=== PATIENT | female | born 1940 | race Caucasian/White ===

== ENCOUNTER 2017-12-20 15:30 | Emergency (ER) | payer MEDICARE ==
[~2017-12-20] VITALS: Ht 157.5 cm; Wt 103.9 kg
[2017-12-20] MEDS ORDERED: POTASSIUM CITRATE 10 MEQ TAB PO ONE (17:15)
[2017-12-20 17:24] VITALS: BP 126/78
== END 2017-12-20 17:20 | disposition home or self-care (01) ==
LOC: FSED 15:30
DX: G47.00 Insomnia, unspecified (principal); R31.9 Hematuria, unspecified; R53.1 Weakness; E87.6 Hypokalemia; R41.3 Other amnesia
CPT/HCPCS: 99283

== ENCOUNTER 2022-04-26 15:19 | Emergency (ER) | payer MEDICARE, OTHER ==
[~2022-04-26] VITALS: Ht 157.5 cm; Wt 103.9 kg
[2022-04-26 15:46] LABS: BASOPHILS % 0.4 % (0.0-1.0); EOSINOPHILS # (AUTO) 0.2 (0.0-0.4); EOSINOPHILS % 2.7 % (0.0-6.0); HEMATOCRIT 46.4 % (34.2-44.1); HEMOGLOBIN 15.1 g/dL (12.0-16.0); LYMPHOCYTES # (AUTO) 2.1 (1.0-3.2); LYMPHOCYTES % 28.4 % (18.0-39.1); MEAN CORPUSCULAR HEMOGLOBIN 31.9 pg (28-32); MEAN CORPUSCULAR HGB CONC 32.5 g/dL (31-35); MEAN CORPUSCULAR VOLUME 97.9 fL (81-99); MONOCYTES # (AUTO) 0.7 (0.2-0.8); MONOCYTES % 8.8 % (4.4-11.3); NEUTROPHILS # (AUTO) 4.5 (2.1-6.9); NEUTROPHILS % 59.6 % (38.7-80.0); PLATELET COUNT 251 x10e3/uL (140-360); RED BLOOD COUNT 4.74 x10e6/uL (3.6-5.1); RED CELL DISTRIBUTION WIDTH 13.8 % (11.7-14.4)
[2022-04-26 15:53] LABS: INR 0.89; PROTHROMBIN TIME 12.9 seconds (11.9-14.5)
[2022-04-26 15:54] LABS: PARTIAL THROMBOPLASTIN TIME 25.6 seconds (23.8-35.5)
[2022-04-26 16:01] LABS: ALANINE AMINOTRANSFERASE 10 IU/L (0-55); ALBUMIN 3.3 g/dL (3.5-5.0); ALBUMIN/GLOBULIN RATIO 0.8 (0.8-2.0); ALKALINE PHOSPHATASE 76 IU/L (40-150); ANION GAP 12.6 mmol/L (8-16); BLOOD UREA NITROGEN 18 mg/dL (7-26); BUN/CREATININE RATIO 18 (6-25); CALCIUM 9.8 mg/dL (8.4-10.2); CARBON DIOXIDE 27 mmol/L (22-29); CHLORIDE 108 mmol/L (98-107); CREATINE KINASE 27 IU/L (29-168); GLUCOSE 115 mg/dL (74-118); POTASSIUM 3.6 mmol/L (3.5-5.1); SODIUM 144 mmol/L (136-145)
[2022-04-26 16:10] LABS: CLARITY,URINE SL CLOUDY (CLEAR); COLOR,URINE AMBER (YELLOW); KETONES,URINE TRACE (NEGATIVE); LEUKOCYTE ESTERASE ,URINE NEGATIVE (NEGATIVE); NITRITE,URINE NEGATIVE (NEGATIVE); PROTEIN,URINE DIPSTICK TRACE (NEGATIVE); URINE UROBILINOGEN 0.2 mg/dL (0.2 - 1)
[2022-04-26 16:19] LABS: BACTERIA,URINE FEW /HPF
[2022-04-26 16:20] LABS: AMORPHOUS SEDIMENT,URINE MODERATE (FEW); EPITHELIAL CELLS,URINE MANY /LPF; MUCUS,URINE MODERATE (RARE)
[2022-04-27 04:39] VITALS: BP 147/80
== END 2022-04-26 23:59 | disposition other institution (70) ==
LOC: ER 15:25
DX: R41.82 Altered mental status, unspecified (principal); R94.31 Abnormal electrocardiogram [ECG] [EKG]; Z20.822 Contact with and (suspected) exposure to COVID-19
CPT/HCPCS: 36415; 70450; 71045; 80053; 81001; 82550; 82553; 83880; 84484; 85025; 85610; 85730; 93005; 99285; U0002

== ENCOUNTER 2023-09-14 14:24 | Inpatient (IN) | payer MEDICARE, OTHER ==
[~2023-09-14] VITALS: Ht 157.5 cm; Wt 103.9 kg
[2023-09-14] MEDS ORDERED: LACTATED RINGER'S 1,000 ML INJ ONE (15:45)
[2023-09-14] MEDS ORDERED: LEVOFLOXACIN 500MG/D5W 100ML 100 ML IV ONE (16:00)
[2023-09-14 16:17] LABS: BASOPHILS % 0.4 % (0.0-1.0); EOSINOPHILS # (AUTO) 0.2 (0.0-0.4); EOSINOPHILS % 2.6 % (0.0-6.0); HEMATOCRIT 46.6 % (34.2-44.1); HEMOGLOBIN 15.8 g/dL (12.0-16.0); LYMPHOCYTES % 27.9 % (18.0-39.1); MEAN CORPUSCULAR HEMOGLOBIN 32.1 pg (28-32); MEAN CORPUSCULAR HGB CONC 33.9 g/dL (31-35); MEAN CORPUSCULAR VOLUME 94.7 fL (81-99); MONOCYTES # (AUTO) 0.7 (0.2-0.8); MONOCYTES % 9.4 % (4.4-11.3); NEUTROPHILS # (AUTO) 4.3 (2.1-6.9); NEUTROPHILS % 59.4 % (38.7-80.0); PLATELET COUNT 229 x10e3/uL (140-360); RED BLOOD COUNT 4.92 x10e6/uL (3.6-5.1); RED CELL DISTRIBUTION WIDTH 13.8 % (11.7-14.4)
[2023-09-14 16:31] LABS: ALANINE AMINOTRANSFERASE 12 IU/L (0-55); ALBUMIN 3.7 g/dL (3.5-5.0); ALBUMIN/GLOBULIN RATIO 1.2 (0.8-2.0); ALKALINE PHOSPHATASE 70 IU/L (40-150); ANION GAP 14.6 mmol/L (8-16); BLOOD UREA NITROGEN 26 mg/dL (7-26); BUN/CREATININE RATIO 28 (6-25); CALCIUM 10.2 mg/dL (8.4-10.2); CARBON DIOXIDE 27 mmol/L (22-29); CHLORIDE 106 mmol/L (98-107); CREATINE KINASE 30 IU/L (29-168); CREATININE, SERUM 0.94 mg/dL (0.57-1.11); GLUCOSE 96 mg/dL (74-118); POTASSIUM 4.6 mmol/L (3.5-5.1); SODIUM 143 mmol/L (136-145)
[2023-09-14] MEDS ORDERED: SODIUM CHLORIDE FLUSH 10 ML SYR INJ PRN (17:30)
[2023-09-14 18:00] LABS: CLARITY,URINE TURBID (CLEAR); COLOR,URINE YELLOW (YELLOW); KETONES,URINE NEGATIVE (NEGATIVE); LEUKOCYTE ESTERASE ,URINE LARGE (NEGATIVE); NITRITE,URINE POSITIVE (NEGATIVE); PROTEIN,URINE DIPSTICK NEGATIVE (NEGATIVE); URINE UROBILINOGEN 0.2 mg/dL (0.2 - 1)
[2023-09-14 18:01] LABS: BACTERIA,URINE MODERATE /HPF; EPITHELIAL CELLS,URINE FEW /LPF; WBC,URINE (MAN) 21-50 /HPF (0-5)
[2023-09-14 20:20] VITALS: PULSE 74; RESP 20; O2SAT 99
[2023-09-14 21:00] VITALS: BP 149/70; PULSE 65; RESP 21; TEMP 98.1; O2SAT 100
[2023-09-14] MEDS ORDERED: LEVOFLOXACIN 250 MG TAB PO ONE (21:30)
[2023-09-14 22:21] VITALS: BP 149/70; PULSE 65; RESP 21; TEMP 98.1; O2SAT 100
[2023-09-15] VITALS (10 sets, daily range): BP systolic 134–152; BP diastolic 79–94; PULSE 68–99; RESP 18–20; TEMP 97.4–98.5; O2SAT 94–99
[2023-09-15] MEDS: FUROSEMIDE INJ 10 MG/ML 2 ML VIAL IV SCH ×3 (02:11→17:29)
[2023-09-15] MEDS ORDERED: ONDANSETRON HCL INJ 2MG/ML 2ML 2 MG/ML VIAL IV PRN (10:45)
[2023-09-15] MEDS ORDERED: ACETAMINOPHEN 325 MG TAB PO PRN (10:45)
[2023-09-15] MEDS ORDERED: HYDRALAZINE HCL 20 MG/ML VIAL IV PRN (10:45)
[2023-09-16] VITALS (7 sets, daily range): BP systolic 121–160; BP diastolic 71–85; PULSE 75–82; RESP 16–21; TEMP 97.4–98.5; O2SAT 96–99
[2023-09-16 06:09] LABS: BASOPHILS % 0.3 % (0.0-1.0); EOSINOPHILS # (AUTO) 0.2 (0.0-0.4); HEMATOCRIT 43.1 % (34.2-44.1); HEMOGLOBIN 15.4 g/dL (12.0-16.0); LYMPHOCYTES # (AUTO) 2.4 (1.0-3.2); LYMPHOCYTES % 25.3 % (18.0-39.1); MEAN CORPUSCULAR HEMOGLOBIN 33.3 pg (28-32); MEAN CORPUSCULAR HGB CONC 35.7 g/dL (31-35); MEAN CORPUSCULAR VOLUME 93.3 fL (81-99); MONOCYTES # (AUTO) 0.9 (0.2-0.8); MONOCYTES % 9.1 % (4.4-11.3); NEUTROPHILS % 62.8 % (38.7-80.0); PLATELET COUNT 201 x10e3/uL (140-360); RED BLOOD COUNT 4.62 x10e6/uL (3.6-5.1); RED CELL DISTRIBUTION WIDTH 13.7 % (11.7-14.4); WHITE BLOOD COUNT 9.59 x10e3/uL (4.8-10.8)
[2023-09-16 06:22] LABS: ANION GAP 16.4 mmol/L (8-16); CALCIUM 9.4 mg/dL (8.4-10.2); CREATININE, SERUM 0.96 mg/dL (0.57-1.11); POTASSIUM 3.4 mmol/L (3.5-5.1)
[2023-09-16] MEDS: FUROSEMIDE INJ 10 MG/ML 2 ML VIAL IV SCH (08:37)
[2023-09-16] MEDS ORDERED: POTASSIUM CHLORIDE 10MEQ EA PO ONE (11:00)
[2023-09-16] MEDS: SOD CHL 0.45%/POT CHL 20MEQ 1,000 ML IV SCH (12:10)
[2023-09-17] VITALS: BP 131/66; PULSE 79; RESP 17; TEMP 98.6; O2SAT 96
[2023-09-17 01:06] VITALS: BP 150/73; PULSE 76; RESP 18; TEMP 98.5; O2SAT 97
[2023-09-17 04:00] VITALS: BP 142/71; PULSE 72; RESP 18; TEMP 98.2; O2SAT 96
[2023-09-17] MEDS: SOD CHL 0.45%/POT CHL 20MEQ 1,000 ML IV SCH ×2 (05:45→13:40)
[2023-09-17 06:26] LABS: ANION GAP 12.9 mmol/L (8-16); CALCIUM 9.1 mg/dL (8.4-10.2); CREATININE, SERUM 0.79 mg/dL (0.57-1.11); POTASSIUM 3.9 mmol/L (3.5-5.1)
[2023-09-17] MEDS ORDERED: ONDANSETRON HCL 4 MG ORAL DISINTEGRATING TAB PO PRN (08:30)
[2023-09-17 08:48] VITALS: BP 143/78; PULSE 79; RESP 19; TEMP 97.9; O2SAT 97
[2023-09-17 08:55] VITALS: BP 143/78; PULSE 79; RESP 19; TEMP 97.9; O2SAT 97
[2023-09-17] MEDS ORDERED: CIPROFLOXACIN 500 MG TAB PO SCH (10:00)
[2023-09-17] MEDS ORDERED: LIDOCAINE 4% PATCH TP SCH (10:00)
[2023-09-17 12:18] VITALS: BP 153/83; PULSE 89; RESP 19; TEMP 97.9; O2SAT 97
== END 2023-09-17 15:34 | disposition home or self-care (01) | DRG 689 ==
LOC: ER 14:34 → ERHOLD 17:21 → MED/SURG2 20:37
PROVIDERS: ADMIT Internal Medicine; ATTEND Internal Medicine
PROC: 3E03329 Introduction of Other Anti-infective into Peripheral Vein, Percutaneous Approach (ICD-10-PCS; principal; 2023-09-14)
PROC: 05H533Z Insertion of Infusion Device into Right Subclavian Vein, Percutaneous Approach (ICD-10-PCS; 2023-09-15)
PROC: B546ZZA Ultrasonography of Right Subclavian Vein, Guidance (ICD-10-PCS; 2023-09-15)
DX: N39.0 Urinary tract infection, site not specified (principal); G92.8 Other toxic encephalopathy; G93.41 Metabolic encephalopathy; Z68.41 Body mass index [BMI] 40.0-44.9, adult; B96.20 Unspecified Escherichia coli [E. coli] as the cause of diseases classified elsewhere; F03.90 Unspecified dementia, unspecified severity, without behavioral disturbance, psychotic disturbance, mood disturbance, and anxiety; M25.562 Pain in left knee; M25.561 Pain in right knee; F01.50 Vascular dementia, unspecified severity, without behavioral disturbance, psychotic disturbance, mood disturbance, and anxiety; G89.29 Other chronic pain; E66.01 Morbid (severe) obesity due to excess calories; M17.0 Bilateral primary osteoarthritis of knee; Z96.653 Presence of artificial knee joint, bilateral; Z88.1 Allergy status to other antibiotic agents; W06.XXXA Fall from bed, initial encounter; Y92.003 Bedroom of unspecified non-institutional (private) residence as the place of occurrence of the external cause; Z99.3 Dependence on wheelchair; Z74.01 Bed confinement status; Z86.73 Personal history of transient ischemic attack (TIA), and cerebral infarction without residual deficits; Z90.5 Acquired absence of kidney; Z88.0 Allergy status to penicillin; Z88.2 Allergy status to sulfonamides; Z20.822 Contact with and (suspected) exposure to COVID-19
CPT/HCPCS: 36415; 36568; 36569; 70450; 71045; 72125; 80048; 80053; 81001; 82550; 83880; 84484; 85025; 87086; 87186; 93005; 94799; 99284; J1940; J1956; U0002

== ENCOUNTER 2024-06-16 17:53 | Inpatient (IN) | payer MEDICARE, OTHER ==
[~2024-06-16] VITALS: Ht 157.5 cm; Wt 113.4 kg
[2024-06-16] MEDS: LACTATED RINGER'S 1,000 ML INJ STA (22:02)
[2024-06-16] MEDS ORDERED: IOPAMIDOL 370 MG/ML 100 ML INFUS..BTL INJ ONE (22:22)
[2024-06-16] MEDS ORDERED: SODIUM CHLORIDE 0.9% 100 ML ONE (22:22)
[2024-06-17] VITALS (16 sets, daily range): BP systolic 131–159; BP diastolic 45–87; PULSE 68–96; RESP 15–22; TEMP 97.5–99; O2SAT 89–99
[2024-06-17] MEDS ORDERED: ONDANSETRON HCL INJ 2MG/ML 2ML 2 MG/ML VIAL IV PRN ×2 (01:45→08:15)
[2024-06-17] MEDS: SODIUM CHLORIDE 0.9% 1000ML 1,000 ML IV SCH (01:45)
[2024-06-17] MEDS ORDERED: BENZONATATE 100 MG CAP PO PRN (08:15)
[2024-06-17] MEDS ORDERED: ACETAMINOPHEN 325 MG TAB PO PRN (08:15)
[2024-06-17] MEDS ORDERED: ALBUTEROL/IPRATROPIUM 3 ML NEB NEB PRN (08:15)
[2024-06-17] MEDS: GUAIFENESIN 600 MG TAB PO SCH (08:21)
[2024-06-17] MEDS: ALBUTEROL/IPRATROPIUM 3 ML NEB NEB SCH (10:13)
[2024-06-17] MEDS: ENOXAPARIN SOD INJ 40 MG/0.4 ML SYR SC SCH (17:19)
[2024-06-18] VITALS (12 sets, daily range): BP systolic 128–156; BP diastolic 61–101; PULSE 68–89; RESP 14–23; TEMP 97.3–98.7; O2SAT 94–100
[2024-06-18 08:00] LABS: ANION GAP 12.9 mmol/L (8-16); CALCIUM 8.7 mg/dL (8.4-10.2); CREATININE, SERUM 0.72 mg/dL (0.57-1.11); POTASSIUM 3.9 mmol/L (3.5-5.1)
[2024-06-18 08:26] LABS: BASOPHILS % 0.4 % (0.0-1.0); EOSINOPHILS # (AUTO) 0.3 (0.0-0.4); EOSINOPHILS % 3.1 % (0.0-6.0); HEMATOCRIT 43.2 % (34.2-44.1); HEMOGLOBIN 14.1 g/dL (12.0-16.0); LYMPHOCYTES # (AUTO) 2.8 (1.0-3.2); LYMPHOCYTES % 30.3 % (18.0-39.1); MEAN CORPUSCULAR HEMOGLOBIN 32.8 pg (28-32); MEAN CORPUSCULAR HGB CONC 32.6 g/dL (31-35); MEAN CORPUSCULAR VOLUME 100.5 fL (81-99); MONOCYTES # (AUTO) 0.9 (0.2-0.8); MONOCYTES % 9.9 % (4.4-11.3); NEUTROPHILS # (AUTO) 5.3 (2.1-6.9); PLATELET COUNT 181 x10e3/uL (140-360); RED CELL DISTRIBUTION WIDTH 13.2 % (11.7-14.4); WHITE BLOOD COUNT 9.38 x10e3/uL (4.8-10.8)
[2024-06-18] MEDS: BALSAM PERU/CASTOR OIL 60 GM OINT...G. TP SCH (09:42)
[2024-06-18 10:14] LABS: FOLATE 14.5 ng/mL (7.0-15.4)
[2024-06-18] MEDS: MUPIROCIN 2% OINT 22 GM TUBE TOP SCH (11:03)
[2024-06-18] MEDS: APIXABAN 5 MG TABLET PO SCH (11:03)
[2024-06-19] VITALS (21 sets, daily range): BP systolic 146–183; BP diastolic 53–140; PULSE 78–107; RESP 18–27; TEMP 97.6–98.6; O2SAT 96–100
[2024-06-19 04:31] LABS: CLARITY,URINE CLEAR (CLEAR); COLOR,URINE YELLOW (YELLOW); GLUCOSE, URINE NEGATIVE (NEGATIVE); LEUKOCYTE ESTERASE ,URINE SMALL (NEGATIVE); NITRITE,URINE NEGATIVE (NEGATIVE); PH,URINE 7 (5 - 7); PROTEIN,URINE DIPSTICK NEGATIVE (NEGATIVE)
[2024-06-19 04:32] LABS: BILIRUBIN,URINE NEGATIVE (NEGATIVE); KETONES,URINE NEGATIVE (NEGATIVE); URINE UROBILINOGEN 0.2 mg/dL (0.2 - 1)
[2024-06-19 05:03] LABS: BACTERIA,URINE MANY /HPF; EPITHELIAL CELLS,URINE FEW /LPF; RBC,URINE 0-5 /HPF (0-5); WBC,URINE (MAN) 0-5 /HPF (0-5)
[2024-06-19] MEDS: ZOLPIDEM TARTRATE 5 MG TAB PO PRN (20:51)
[2024-06-20] VITALS (21 sets, daily range): BP systolic 145–181; BP diastolic 72–111; PULSE 67–110; RESP 12–20; TEMP 97.9–98.2; O2SAT 94–100
[2024-06-20] MEDS: HALOPERIDOL LACTATE 5 MG/ML VIAL IM PRN (02:11)
[2024-06-20] MEDS: METOPROLOL TARTRATE 50 MG TAB PO SCH (09:26)
[2024-06-20] MEDS: LINEZOLID 600 MG TAB PO SCH (09:26)
== END 2024-06-20 17:50 | disposition hospice, home (50) | DRG 299 ==
LOC: FSED 17:59 → ERHOLD 06-17 01:48 → ICU 06-17 02:25
PROVIDERS: ADMIT Internal Medicine; ATTEND Internal Medicine
PROC: 02HV33Z Insertion of Infusion Device into Superior Vena Cava, Percutaneous Approach (ICD-10-PCS; principal; 2024-06-18)
DX: I82.411 Acute embolism and thrombosis of right femoral vein (principal); G92.8 Other toxic encephalopathy; F05 Delirium due to known physiological condition; N39.0 Urinary tract infection, site not specified; Z68.42 Body mass index [BMI] 45.0-49.9, adult; F02.811 Dementia in other diseases classified elsewhere, unspecified severity, with agitation; F02.82 Dementia in other diseases classified elsewhere, unspecified severity, with psychotic disturbance; G30.9 Alzheimer's disease, unspecified; I50.9 Heart failure, unspecified; E66.01 Morbid (severe) obesity due to excess calories; E86.0 Dehydration; B95.2 Enterococcus as the cause of diseases classified elsewhere; Z51.5 Encounter for palliative care; I25.10 Atherosclerotic heart disease of native coronary artery without angina pectoris; Z11.52 Encounter for screening for COVID-19; M19.90 Unspecified osteoarthritis, unspecified site; K21.9 Gastro-esophageal reflux disease without esophagitis; M54.9 Dorsalgia, unspecified; Z99.3 Dependence on wheelchair; Z90.710 Acquired absence of both cervix and uterus; Z86.711 Personal history of pulmonary embolism; Z87.440 Personal history of urinary (tract) infections; Z95.5 Presence of coronary angioplasty implant and graft; Z88.1 Allergy status to other antibiotic agents; Z88.2 Allergy status to sulfonamides; Z88.5 Allergy status to narcotic agent; Z88.8 Allergy status to other drugs, medicaments and biological substances
CPT/HCPCS: 0223U; 36415; 36569; 70450; 70551; 71045; 71250; 74176; 80048; 80076; 81001; 81003; 82553; 82607; 82746; 82948; 83880; 84443; 84484; 85025; 87086; 87186; 93005; 93970; 94640; 94799; 99252; 99284; J1630; J1650; J7030; J7050; Q9967

== ENCOUNTER 2025-05-17 14:55 | Observation (INO) | payer MEDICARE ==
[~2025-05-17] VITALS: Ht 157.5 cm; Wt 113.4 kg
[2025-05-17 15:07] VITALS: TEMP 98.9
[2025-05-17 16:00] VITALS: PULSE 86; RESP 18
[2025-05-17 16:22] LABS: BASOPHILS % 0.3 % (0.0-1.0); EOSINOPHILS # (AUTO) 0.1 (0.0-0.4); EOSINOPHILS % 0.4 % (0.0-6.0); HEMOGLOBIN 15.7 g/dL (12.0-16.0); MEAN CORPUSCULAR HEMOGLOBIN 33.1 pg (28-32); MEAN CORPUSCULAR HGB CONC 34.1 g/dL (31-35); MONOCYTES # (AUTO) 1.1 (0.2-0.8); MONOCYTES % 7.6 % (4.4-11.3); NEUTROPHILS # (AUTO) 10.9 (2.1-6.9); NEUTROPHILS % 77.3 % (38.7-80.0); PLATELET COUNT 214 x10e3/uL (140-360); RED BLOOD COUNT 4.74 x10e6/uL (3.6-5.1); RED CELL DISTRIBUTION WIDTH 12.8 % (11.7-14.4); WHITE BLOOD COUNT 14.05 x10e3/uL (4.8-10.8)
[2025-05-17 16:26] LABS: INR 0.95; PROTHROMBIN TIME 13.5 seconds (11.9-14.5)
[2025-05-17 16:27] LABS: PARTIAL THROMBOPLASTIN TIME 24.4 seconds (23.8-35.5)
[2025-05-17 16:34] LABS: ALBUMIN 3.5 g/dL (3.5-5.0); ALBUMIN/GLOBULIN RATIO 1.2 (0.8-2.0); CALCIUM 9.6 mg/dL (8.4-10.2); CREATININE, SERUM 0.78 mg/dL (0.57-1.11); TOTAL PROTEIN 6.4 g/dL (6.5-8.1)
[2025-05-17] MEDS: SODIUM CHLORIDE 0.9% 1000ML 1,000 ML IV STA (16:57)
[2025-05-17] MEDS ORDERED: ONDANSETRON HCL INJ 2MG/ML 2ML 2 MG/ML VIAL IV PRN (17:15)
[2025-05-17 21:30] VITALS: BP 126/97; PULSE 81; RESP 18; TEMP 98.4; O2SAT 98
[2025-05-17] MEDS ORDERED: ELIQUIS5 MG PO (22:56)
[2025-05-17] MEDS ORDERED: METHENAMINE HIPP1 GM PO (22:56)
[2025-05-17] MEDS ORDERED: FUROSEMIDE40 MG PO (22:56)
[2025-05-17] MEDS ORDERED: TRAZODONE HCL50 MG PO (22:56)
[2025-05-17 23:21] VITALS: BP 126/97; PULSE 81; RESP 18; TEMP 98.4; O2SAT 98
[2025-05-18] VITALS (9 sets, daily range): BP systolic 125–157; BP diastolic 73–97; PULSE 64–92; RESP 17–21; TEMP 97.1–98.9; O2SAT 95–99
[2025-05-18] MEDS: TRAZODONE HCL 50 MG TAB PO STA (00:45)
[2025-05-18] MEDS: SODIUM CHLORIDE 0.9% 1000ML 1,000 ML IV ONE (00:46)
[2025-05-18 06:44] LABS: BASOPHILS % 0.3 % (0.0-1.0); EOSINOPHILS # (AUTO) 0.2 (0.0-0.4); EOSINOPHILS % 2.5 % (0.0-6.0); HEMATOCRIT 38.9 % (34.2-44.1); HEMOGLOBIN 13.2 g/dL (12.0-16.0); LYMPHOCYTES # (AUTO) 2.5 (1.0-3.2); LYMPHOCYTES % 26.4 % (18.0-39.1); MEAN CORPUSCULAR HEMOGLOBIN 33.8 pg (28-32); MEAN CORPUSCULAR HGB CONC 33.9 g/dL (31-35); MEAN CORPUSCULAR VOLUME 99.5 fL (81-99); MONOCYTES # (AUTO) 0.8 (0.2-0.8); MONOCYTES % 8.6 % (4.4-11.3); NEUTROPHILS # (AUTO) 5.7 (2.1-6.9); NEUTROPHILS % 61.9 % (38.7-80.0); PLATELET COUNT 186 x10e3/uL (140-360); RED BLOOD COUNT 3.91 x10e6/uL (3.6-5.1); WHITE BLOOD COUNT 9.28 x10e3/uL (4.8-10.8)
[2025-05-18 07:24] LABS: ALANINE AMINOTRANSFERASE < 6 IU/L (0-55); ALBUMIN 2.8 g/dL (3.5-5.0); ALKALINE PHOSPHATASE 52 IU/L (40-150); ANION GAP 14.1 mmol/L (8-16); BILIRUBIN,TOTAL 0.9 mg/dL (0.2-1.2); BLOOD UREA NITROGEN 22 mg/dL (7-26); BUN/CREATININE RATIO 28 (6-25); CARBON DIOXIDE 21 mmol/L (22-29); CHLORIDE 109 mmol/L (98-107); CREATININE, SERUM 0.79 mg/dL (0.57-1.11); EST GLOMERULAR FILTRATION RATE 75 ML/MIN (>=60); GLUCOSE 119 mg/dL (74-118); POTASSIUM 3.1 mmol/L (3.5-5.1); SODIUM 141 mmol/L (136-145); TOTAL PROTEIN 5.6 g/dL (6.5-8.1)
[2025-05-18] MEDS ORDERED: FUROSEMIDE 40 MG TAB PO SCH (09:00)
[2025-05-18] MEDS ORDERED: TRAZODONE HCL 50 MG TAB PO SCH (09:00)
[2025-05-18] MEDS: APIXABAN 5 MG TABLET PO SCH (10:17)
[2025-05-18] MEDS: POTASSIUM CHLORIDE 10MEQ EA PO ONE (10:53)
[2025-05-18] MEDS: TRAZODONE HCL 50 MG TAB PO SCH (20:14)
[2025-05-19] VITALS (8 sets, daily range): BP systolic 113–159; BP diastolic 63–99; PULSE 66–68; RESP 16–18; TEMP 97.2–98.2; O2SAT 97–100
== END 2025-05-19 17:58 | disposition hospice, home (50) ==
LOC: ER 16:19 → INTOOBSV 17:24 → ERHOLD 17:24 → MED/SURG3 20:51
PROVIDERS: ADMIT Internal Medicine; ATTEND Internal Medicine
DX: K52.9 Noninfective gastroenteritis and colitis, unspecified (principal); E86.0 Dehydration; G30.9 Alzheimer's disease, unspecified; F02.80 Dementia in other diseases classified elsewhere, unspecified severity, without behavioral disturbance, psychotic disturbance, mood disturbance, and anxiety; I50.9 Heart failure, unspecified; Z87.440 Personal history of urinary (tract) infections; K21.9 Gastro-esophageal reflux disease without esophagitis; G89.29 Other chronic pain; M54.9 Dorsalgia, unspecified; M19.90 Unspecified osteoarthritis, unspecified site; Z95.5 Presence of coronary angioplasty implant and graft
CPT/HCPCS: 36415 ×2; 74176; 80053 ×2; 83735; 85025 ×2; 85610; 85730; 99284; G0378 ×3; J2470 ×3; J7030